=== PATIENT | female | born 1980 ===

== ENCOUNTER 2019-12-17 17:13 | Emergency (ER) | payer SELFPAY ==
[2019-12-17 17:24] VITALS: BP 123/75; PULSE 69; RESP 16; TEMP 36.8; O2SAT 100
--- NOTE | 2019-12-17 17:47 | ED.GENADUL_ITS ---
Discharge Plan Disposition Patient Disposition: HOME Condition: Stable Discharge Details Chief Complaint: Abd Prob Clinical Impression: Abdominal pain, Hematuria Primary Care Provider: Evelyn,Local ED Provider: Laith Abbasi Home Meds and New Rx's Prescriptions: New sulfamethoxazole-trimethoprim [Bactrim DS] 800-160 mg tablet 1 tab PO BID Qty: 14 RF: 0 Discharge Instructions Instructions: Hematuria (ED), Abdominal Pain (ED) Additional Instructions: Bactrim as directed. [id number] medications such as Tylenol, Motrin, Azo for symptomatic control. Plenty of fluids to avoid dehydration. Please watch for new or worsening symptoms and return to the ER for any concerns. I have placed you on the care management list, they should be in contact with you the next 24 hours to help expedite outpatient care and establish a primary care provider. Medical Decision Making 39-year-old female who presents to the ER reporting lower abdominal pain that began Tuesday, becoming constant and moderate in nature. She reports a subjective fever because her eyes felt warm. She specifically denies any headache, blurry vision, dizziness or sensation like the room is spinning to me. She denies any vaginal bleeding or discharge. Evaluation and history completed with emergency department aide on the phone. She appears well, nontoxic, abdomen is certainly non-surgical. No documented fever here. Denies nausea, vomiting, back pain, dysuria, hematuria, vaginal bleeding or discharge. Patient does have a history of ovarian cysts, examination not consistent with torsion. Will obtain CBC, CMP, urinalysis, urine . Patient appears well, nontoxic. Laboratory values reveal a white blood cell count of 10.27 hemoglobin 12.7 hem atocrit 39.3 platelet count 350. Electrolytes are unremarkable. Creatinine 0.66 with a GFR greater than 60. Urinalysis reveals moderate blood, 10-20 red blood cells, many high-power field epithelial cells. No culture indicated. Patient very well could have a hemorrhagic cystitis but given her discomfort and the language barrier, I do believe obtaining CT without contrast is reasonable. Patient is agreeable to this plan, will also be given 60 mg IM Toradol. Patient does report improvement of her symptoms with the Toradol. CT imaging read by virtual radiology reveals urinary bladder wall thickening this can be seen with infection or under distention. Evaluation for pyelonephritis is limited secondary to lack of IV contrast, no hydronephrosis, no renal or ureteral calculi seen. Right adrenal adenoma. Scattered sclerotic foci in the bones most likely represent bone islands Discussed laboratory values and CT findings with patient. She was given her first dose of p.o. Bactrim here and I will provide a prescription. I did provide her with her discharge instructions in [place] and discharge instructions were given with the emergency department aide. I have also placed the patient on the call back list for care management to help expedite outpatient care. Lab Data Lab results reviewed: Yes I reviewed the patient's lab results. Lab results narrative: Laboratory Tests Range/Units 12/17/19 12/17/19 12/17/19 17:51 17:58 17:58 WBC (4.4-10.8) k/cumm 10.27 RBC (4.00-5.20) m/cumm 4.22 Hgb (12.0-15.5) g/dL 12.7 Hct (36.0-46.0) % 39.3 MCV (80-95) fL 93.1 MCH (27.0-33.0) pg 30.1 MCHC (32.0-36.0) g/dL 32.3 RDW (11.7-14.6) % 13.2 Plt Count (130-400) x1000/uL 350 MPV (8.0-11.0) fL 9.5 Immature Gran % % 0.4 Neutrophils % 43.1 Lymphocytes % 45.1 Monocytes % 6.7 Eosinophils % 4.5 Basophils % 0.2 Absolute Neutrophils (1.2-6.7) k/cumm 4.43 Absolute Lymphocytes (1.2-3.4) k/cumm 4.63 H Absolute Monocytes (0.11-0.7) k/cumm 0.69 Absolute Eosinophils (0.0-0.7) k/cumm 0.46 Absolute Basophils (0.0-0.2) k/cumm 0.02 Sodium (136-145) mmol/L 137 Potassium (3.5-5.1) mmol/L 4.1 Chloride (98-107) mmol/L 105 Carbon Dioxide (21.0-32.0) mmol/L 25.0 Anion Gap (3-11) mmol/L 7.0 BUN (7-18) mg/dL 15 Creatinine (0.55-1.02) mg/dL 0.66 Estimated GFR/1.73 m2 (mL/min/1.73m2) >= 60.00 Glucose (74-106) mg/dL 112 H Calcium (8.5-10.1) mg/dL 8.8 Total Bilirubin (0.2-1.0) mg/dL 0.2 AST (15-37) U/L 23 ALT (14-59) U/L 33 Alkaline Phosphatase (46-116) U/L 67 Total Protein (6.4-8.2) g/dL 7.7 Albumin (3.4-5.0) g/dL 3.7 Lipase (73-393) U/L 175 Urine Color (Yellow) Yellow Urine Clarity (Clear) Sl cloudy Urine pH (5-8) 6.5 Ur Specific [place] (1.005-1.025) 1.020 Urine Protein (Negative) mg/dL Negative Urine Ketones (Negative) mg/dL Negative Urine Blood (Negative) Moderate H Urine Nitrite (Negative) Negative Urine Bilirubin (Negative) Negative Urine Urobilinogen (Up TO 0.2) EU/dL 0.2 Ur Leukocyte Esterase (Negative) Negative Urine RBC (0-2) HPF 10-20 H Urine WBC (0-5) HPF 0-2 Ur Epithelial Cells (Negative) HPF Many Urine Crystals (Negative) HPF Negative Urine Bacteria (Negative) HPF Negative Urine Mucus (Negative) Negative Ur Culture Indicated? No Urine Glucose (Negative) mg/dL Negative HPI General Mode of arrival: ambulatory . Date/Time Provider Initiated Documentation: 12/17/19 17:14 . Limitations to Documentation: no limitations . Information obtained by: patient and cordwood cutter helper . HPI Narrative: This is a 39-year-old female who was interviewed and examined using an cordwood cutter helper service. She presents reporting lower abdominal pain that began on Tuesday and has progressively gotten worse, now constant and moderate in nature. When I asked her about a fever she reports that her eyes felt warm so she thinks she probably had a fever. In her triage note she admitted to blurry vision and dizziness as though the room is spinning, I specifically asked her about this and she denies this to me. She reports that she has a history of ovarian cysts that do feel somewhat similar but not usually as severe. She moved to this area roughly 1 year ago does not have a local primary care provider. To me she denies headache, neck pain, chest pain, shortness of breath, back pain, nausea, vomiting, dysuria, hematuria, diarrhea or constipation. She reports that her last menstrual cycle was 10 or 11 days ago, was normal, has had no abnormal vaginal bleeding or discharge. She is sexually active with one partner, her . No suspected STDs. Related Data Home Medications Medication Instructions Recorded Confirmed sulfamethoxazole-trimethoprim 1 tab PO BID #14 tab 12/17/19 [Bactrim DS] Previous Rx's Medication Instructions Recorded sulfamethoxazole-trimethoprim 1 tab PO BID #14 tab 12/17/19 [Bactrim DS] General Stated Complaint: Abd Prob SAMSON: 3 Review of Systems Constitutional Constitutional: Denies chills, Denies fatigue, Reports fever(s) (Subjective) and Denies headache(s) Eyes Eyes: Denies change in vision ENT Ears, Nose, Mouth, and Throat: Denies headache(s) Cardiovascular Cardiovascular: Denies chest pain and Denies dyspnea Respiratory Respiratory: Denies cough and Denies dyspnea Gastrointestinal Gastrointestinal: Reports abdominal pain, Denies diarrhea, Denies nausea and Denies vomiting Genitourinary Genitourinary: Denies abnormal vaginal bleeding, Denies dysuria, Denies pelvic pain and Denies vaginal discharge Musculoskeletal Musculoskeletal: Denies back pain Integumentary/Breasts Skin/Breast: Denies rash Neurologic Neurologic: Denies headache(s) Endocrine Endocrine: Denies fatigue Exam Const General: cooperative, healthy appearing, comfortable and no acute distress Orientation: alert and awake [facility] Head: normal to inspection, normocephalic and atraumatic Mouth: moist mucous membranes Eyes Conjunctivae: conjunctivae normal Sclera: sclerae normal Neck Neck: normal visual inspection, full ROM, no meningeal signs, trachea midline and supple Resp Effort & Inspection: normal respiratory effort and able to speak in complete sentences Auscultation: clear to auscultation bilaterally Cardio Rate: regular rate Rhythm: regular rhythm GI Inspection: normal to inspection Palpation: not firm, no guarding, not rigid and nontender Auscultation: normal bowel sounds Back/Spine/Pelvis Back: No back tenderness Skin General skin exam: no rashes or lesions noted Neuro General: patient alert, patient awake, moves all extremities and no focal motor deficits Speech: speech normal Gait: normal gait Sensory Exam: no sensory deficits noted Psych Appearance: grossly normal Mental Status: mental status grossly normal Course Vital Signs Vital signs: Vital Signs Temperature 36.8 C 12/17/19 17:24 Pulse 69 12/17/19 17:24 Respiratory Rate 16 12/17/19 17:24 Blood Pressure 123/75 12/17/19 17:24 Pulse Oximetry 100 12/17/19 17:24 Temperature 36.8 C 12/17/19 17:24 Temperature Source Skin 12/17/19 17:24 Pulse 69 12/17/19 17:24 Respiratory Rate 16 12/17/19 17:24 Blood Pressure 123/75 12/17/19 17:24 Blood Pressure Position Sitting 12/17/19 17:24 Pulse Oximetry 100 12/17/19 17:24 Oxygen Delivery Method Room Air 12/17/19 17:24 Oxygen Flow Rate 0 12/17/19 17:24
[2019-12-17 18:00] LABS: Bilirubin Negative (Negative); Blood Moderate (Negative); Clarity Sl Cloudy (Clear); Glucose Negative (Negative); Ketones Negative (Negative); Leukocyte Esterase Negative (Negative); Nitrite Negative (Negative); Urobilinogen 0.2 EU/dL (Up TO 0.2); pH 6.5 (5-8)
[2019-12-17 18:10] LABS: Abs Immature Grans 0.04 k/cumm (0.0-0.09); Absolute Basophil Count 0.02 k/cumm (0.0-0.2); Absolute Eosinophil Count 0.46 k/cumm (0.0-0.7); Absolute Lymphocyte Count 4.63 k/cumm (1.2-3.4); Absolute Monocyte Count 0.69 k/cumm (0.11-0.7); Absolute Neutrophil Count 4.43 k/cumm (1.2-6.7); Basophils % 0.2; Eosinophils % 4.5; HCT 39.3 % (36.0-46.0); HGB 12.7 g/dL (12.0-15.5); Immature Grans % 0.4 %; Lymphocytes % 45.1; Mean Corp. HGB Concentration 32.3 g/dL (32.0-36.0); Mean Corpuscular Hemoglobin 30.1 pg (27.0-33.0); Mean Corpuscular Volume 93.1 fL (80-95); Mean Platelet Volume 9.5 fL (8.0-11.0); Monocytes % 6.7; Neutrophils % 43.1; Platelet Count 350 x1000/uL (130-400); RBC 4.22 m/cumm (4.00-5.20); RBC Distribution Width 13.2 % (11.7-14.6); White Blood Cell Count 10.27 k/cumm (4.4-10.8)
[2019-12-17 18:18] LABS: Bacteria Negative HPF (Negative); Crystals Negative HPF (Negative); Epithelial Cells Many HPF (Negative); WBC 0-2 HPF (0-5)
[2019-12-17 18:19] LABS: C & S Indicated? No; Mucus Negative (Negative)
[2019-12-17 18:26] LABS: ALT 33 U/L (14-59); AST 23 U/L (15-37); Albumin 3.7 g/dL (3.4-5.0); Alkaline Phosphatase 67 U/L (46-116); BUN 15 mg/dL (7-18); Bilirubin, Total 0.2 mg/dL (0.2-1.0); CREATININE 0.66 mg/dL (0.55-1.02); Calcium 8.8 mg/dL (8.5-10.1); Chloride 105 mmol/L (98-107); Glucose 112 mg/dL (74-106); Lipase 175 U/L (73-393); Potassium 4.1 mmol/L (3.5-5.1); Sodium 137 mmol/L (136-145); Total Protein 7.7 g/dL (6.4-8.2)
--- NOTE | 2019-12-17 18:30 | DI.CT_ITS ---
EXAM: CT ABDOMEN PELVIS WO CLINICAL HISTORY: Hematuria, lower abdominal pain. TECHNIQUE: Imaging Protocol: Axial computed tomography images with coronal and sagittal reformatted images were created and reviewed. COMPARISON: No exams were available for comparison FINDINGS: Patient motion artifact is present. ABDOMEN: Lung Bases: Normal where visualized. Liver: Normal density. There is a tiny hypodensity in the right lobe of the liver. It is too small f or further characterization but likely reflects a small cyst. Gallbladder and biliary tract: No radiodense calculus or biliary ductal dilation. Pancreas: Normal density, no abnormal calcifications or inflammatory process. Spleen: Normal. Kidneys: Normal size, contour and axis.No radiodense stones or obstructive uropathy. No masses seen. Adrenal glands: There is a 1.7 cm hypodense right adrenal lesion likely reflecting an adenoma. The l eft adrenal gland is unremarkable. Lymph nodes: Within normal limits. Abdominal Aorta: Abdominal portion non-dilated. PELVIS: Bladder:Bladder is incompletely distended. There is wall thickening of the urinary bladder likely re flecting the underdistention. Inflammatory infectious process cannot be entirely excluded. Bowel: There is a rounded fat density lesion adjacent to the sigmoid colon. There is mild increased attenuation associated with this lesion in the surrounding fat. (Series 5, image 62). This may repr esent epiploic appendagitis. There is no evidence of bowel obstruction or inflammation. There is a normal appendix visualized. Peritoneal cavity: No ascites, collection or mesenteric inflammatory response Reproductive organs: Within normal limits. Bones: There are a few tiny round sclerotic lesions seen in the bones. In the absence of known malig matt, these likely reflects bone islands. Soft Tissues: Within normal limits. IMPRESSION: 1. Rounded fat density lesion adjacent to the sigmoid colon with mild adjacent fat stranding. This m ay represent epiploic appendagitis. 2. No evidence of nephrolithiasis or hydronephrosis. 3. Apparent urinary bladder wall thickening. This likely is due to underdistention. Infection or in flammation cannot be entirely excluded. 4. Probable right adrenal adenoma RADIATION DOSE DELIVERED: Total DLP DATA REPOSITORY: All CT scans at this facility are submitted to the National Radiology Data Registry (NRDR) Dose Index Registry (DIR) with the [employer] ([employer]). RADIATION OPTIMIZATION: All CT scans at this facility use at least one of these dose optimization te chniques: automated exposure control; mA and/or kV adjustment per patient size (includes targeted exa ms where dose is matched to clinical indication); or iterative reconstruction.
[2019-12-17] MEDS: Ketorolac 60 MG/2 ML VIAL IM (19:02)
--- NOTE | 2019-12-17 19:40 | DI.VRAD_ITS ---
PROCEDURE INFORMATION: Exam: CT Abdomen And Pelvis Without Contrast Exam date and time: 12/17/2019 6:33 PM Age: 39 years old Clinical indication: Abdominal pain; Localized; Patient HX: Hematuria, lower abd pain TECHNIQUE: Imaging protocol: Computed tomography of the abdomen and pelvis without contrast. COMPARISON: No relevant prior studies available. FINDINGS: Liver: Homogeneous liver. Gallbladder and bile ducts: No calcified gallstones identified. Pancreas: Homogeneous pancreas. Spleen: Normal caliber spleen. Adrenals: 1.7 cm, 2 Hounsfield unit hypodensity, right adrenal gland. This is most consistent with an adenoma. Kidneys and ureters: Evaluation for pyelonephritis is limited secondary to the lack of IV contrast. No hydronephrosis. No renal or ureteral calculi seen. Stomach and bowel: No evidence of bowel obstruction. Appendix: Normal caliber appendix. Intraperitoneal space: No free air. No free fluid. Vasculature: No abdominal aortic aneurysm. Lymph nodes: No pathologic lymph node enlargement. Bladder: There is urinary bladder wall thickening. This can be seen with infection or underdistention. Reproductive: The right ovary is difficult to assess secondary to overlapping loops of bowel. Left adnexal structures are grossly within normal limits. Bones/joints: Scattered sclerotic foci in the bones. In the absence of known malignancy, these most likely represent bone islands. Soft tissues: Tiny fat containing umbilical hernia. IMPRESSION: 1. Urinary bladder wall thickening. This can be seen with infection or underdistention. 2. Evaluation for pyelonephritis is limited secondary to the lack of IV contrast. No hydronephrosis. No renal or ureteral calculi seen. 3. Right adrenal adenoma. Other findings/details as above. Dictated and Authenticated by: Susana Sam MD. Ordering:MARLYN Ozuna MD
[2019-12-17] MEDS: Sulfameth/Trimeth DS TAB 1 TAB PO (20:34)
[2019-12-17 20:35] VITALS: BP 123/75; PULSE 70; TEMP 36.9; O2SAT 100
== END 2019-12-17 20:20 | disposition home or self-care (01) ==
PROVIDERS: Emergency Provider Physician Assistant
DX: R42 Dizziness and giddiness (principal); R31.9 Hematuria, unspecified; R10.30 Lower abdominal pain, unspecified
CPT/HCPCS: 36415; 80053; 81025; 83690; 93005; 96372; 99285; 74176; 81003; 81015; 85025; 93010; 99284; J1885